=== PATIENT | female | born 1980 | race Caucasian/White ===

== ENCOUNTER 2021-12-17 09:38 | Emergency (ER) | payer OTHER ==
[2021-12-17 10:48] LABS: HEMOGLOBIN 14.6 gm/dl (12.3-15.3); RED BLOOD COUNT 4.14 M/UL (4.00-5.10); WHITE BLOOD COUNT 14.8 K/UL (4.5-11.0)
[2021-12-17 15:43] LABS: BODY FLUID SOURCE PERITONEAL
[2021-12-17 15:44] LABS: MONONUCLEAR CELLS 5 %; POLYMORPHONUCLEAR 95 %; RBC (AUTOMATED) 2000 10^6; WBC (AUTOMATED) 13280 10^3
== END 2021-12-17 19:27 | disposition short-term general hospital (02) ==
LOC: ER1 09:38
PROVIDERS: Emergency Medicine
DX: A41.9 Sepsis, unspecified organism (principal); R65.21 Severe sepsis with septic shock; K65.2 Spontaneous bacterial peritonitis; N39.0 Urinary tract infection, site not specified
CPT/HCPCS: 71045; 80053; 81001; 83605; 83735; 84100; 85025; 85610; 87040; 87070; 87077; 87086; 87186; 87205; 89051; 96374; 96375; 99285; J0692; J2405; J2550; J3370; J7030; Q9967